=== PATIENT | female | born 2000 | race Two or more races ===

== ENCOUNTER 2021-12-19 06:02 | Observation (INO) | payer BC ==
[~2021-12-19] VITALS: Ht 167.6 cm; Wt 61.2 kg
[2021-12-19] VITALS (7 sets, daily range): BP systolic 106–125; BP diastolic 69–80
[~2021-12-19 06:02] MED LIST: HEPARIN SOD (PORCINE) 5000UNITS/ML 1ML VIAL/SYRINGE SQ ONE; TEST200I14 SC; ceFAZolin SOD 2 GM in IV 1 EA IV ONE
[2021-12-19] MEDS ORDERED: INSULIN LISPRO (NovoLOG) PER UNIT SC PRN ×2 (07:05→10:50)
[2021-12-19] MEDS ORDERED: LR 1,000 ML IV SCH ×2 (07:05→10:50)
[2021-12-19] MEDS ORDERED: propofoL 200 MG/20 ML VIAL As Ordered ONE (07:16)
[2021-12-19] MEDS ORDERED: ROCURONIUM BROMIDE 50 MG/5 ML VIAL As Ordered ONE ×2 (07:16→08:23)
[2021-12-19] MEDS ORDERED: LIDOCAINE 2% 100MG/5ML SDV (FOR ANES.) As Ordered ONE (07:16)
[2021-12-19] MEDS ORDERED: GENTAMICIN SULF 80MG/2ML VIAL As Ordered ONE (07:17)
[2021-12-19] MEDS ORDERED: fentaNYL 250 MCG/5 ML INJECTION As Ordered ONE (07:17)
[2021-12-19] MEDS ORDERED: BUPIVACAINE LIPOSOME/PF 1.3% 20ML VIAL (13.3MG/ML)(EXPAREL) As Ordered ONE (07:17)
[2021-12-19] MEDS ORDERED: BUPIVACAINE HCL 0.25% 10ML VIAL As Ordered ONE (07:17)
[2021-12-19] MEDS ORDERED: MIDAZOLAM INJ 2MG/2ML VIAL (J2250 PER 1MG) As Ordered ONE (07:17)
[2021-12-19] MEDS ORDERED: dexameTHASONE 4 MG/ML 1ML VIAL (J1100 PER 1MG) As Ordered ONE (07:49)
[2021-12-19] MEDS ORDERED: METOCLOPRAMIDE INJ 10MG/2ML VIAL (J2765 PER 1) As Ordered ONE (08:10)
[2021-12-19] MEDS ORDERED: KETOROLAC 60MG 2ML VIAL As Ordered ONE (08:10)
[2021-12-19] MEDS ORDERED: ACETAMINOPHEN 1000MG 100ML IV BTL (OFIRMEV) (J0131 PER 10MG) As Ordered ONE (08:10)
[2021-12-19] MEDS ORDERED: ONDANSETRON 4MG/2ML VIAL As Ordered ONE (08:10)
[2021-12-19] MEDS ORDERED: SUGAMMADEX SODIUM 500 MG/5 ML VIAL (BRIDION) As Ordered ONE (08:10)
[2021-12-19] MEDS ORDERED: HYDROmorphone HCL 2MG/ML 1ML VIAL As Ordered ONE (08:11)
[2021-12-19] MEDS ORDERED: PHENYLephrine 500MCG 5ML (100MCG/ML) SYRINGE As Ordered ONE (08:24)
[2021-12-19] MEDS ORDERED: ONDANSETRON 4MG/2ML VIAL IV PRN ×2 (10:50→11:00)
[2021-12-19] MEDS ORDERED: METOCLOPRAMIDE INJ 10MG/2ML VIAL (J2765 PER 1) IV PRN (10:50)
[2021-12-19] MEDS ORDERED: MORPHINE 2 MG/ML 1ML VIAL IV PRN (10:50)
[2021-12-19] MEDS ORDERED: fentaNYL 100 MCG/2 ML INJECTION IV PRN (10:50)
[2021-12-19] MEDS ORDERED: ACETAMINOPHEN TAB 650MG DOSE (2X325MG) PO PRN (11:00)
[2021-12-19] MEDS: LR 1,000 ML IV SCH (14:55)
[2021-12-19] MEDS ORDERED: ceFAZolin SOD 1 GM in D5W MINI-BAG PLUS 50 ML IV ONE (16:00)
[2021-12-19] MEDS: KETOROLAC TROMETHAMINE 10 MG TAB PO PRN ×2 (16:34→23:45)
[2021-12-20 02:00] VITALS: BP 110/71
[2021-12-20 06:00] VITALS: BP 110/69
[2021-12-20] MEDS: LR 1,000 ML IV SCH (06:14)
[2021-12-20] MEDS: PERCOCET 5MG/325MG TAB PO PRN ×2 (08:23→14:47)
[2021-12-20] MEDS ORDERED: PERCOCET PO (09:32)
[2021-12-20 10:00] VITALS: BP 120/74
[2021-12-20] MEDS: KETOROLAC TROMETHAMINE 10 MG TAB PO PRN (13:20)
[2021-12-20 14:00] VITALS: BP 123/71
== END 2021-12-20 14:50 | disposition home or self-care (01) ==
LOC: M SDC 06:02 → M MS5PR 06:03
PROVIDERS: ADMIT Plastic Surgery Surgery of the Hand; ATTEND Plastic Surgery Surgery of the Hand
DX: F64.9 Gender identity disorder, unspecified (principal); N62 Hypertrophy of breast; F41.8 Other specified anxiety disorders; F32.A Depression, unspecified; F60.3 Borderline personality disorder; Z91.51 Personal history of suicidal behavior; F50.81 Binge eating disorder; Z79.899 Other long term (current) drug therapy; Z86.16 Personal history of COVID-19
CPT/HCPCS: 19303; 19350; 81025; 88305; 96361; 96374; C9290; J0131; J0690; J1100; J1170; J1580; J1644; J1885; J2250; J2370; J2405; J2765; J3010